=== PATIENT | female | born 1950 ===

== ENCOUNTER 2021-07-18 07:51 | Emergency (ER) | payer OTHER ==
[~2021-07-18] VITALS: Ht 157.5 cm; Wt 88.9 kg
[~2021-07-18 07:51] MED LIST: CLOTRIMAZOLE VG; NEURONTIN800 MG; TAMS0.4C PO; TRAMADOL HCL50 MG PO; [UNRECOGNIZED DRUG - OTHER]
[2021-07-18] MEDS ORDERED: NAPR500T14 PO (08:05)
[2021-07-18] MEDS ORDERED: FELODIPINE ER5 MG PO (08:05)
[2021-07-18] MEDS ORDERED: SYNTHROID50 MCG PO (08:05)
[2021-07-18] MEDS ORDERED: NORFLEX100MG PO (12:47)
== END 2021-07-18 13:06 | disposition home or self-care (01) ==
LOC: ER 07:51
DX: R10.11 Right upper quadrant pain (principal)

== ENCOUNTER 2021-08-01 07:37 | Outpatient (CLI) | payer OTHER ==
[~2021-08-01 07:37] MED LIST changes: +FELODIPINE ER5 MG PO; +NAPR500T14 PO; +NORFLEX100MG PO; +SYNTHROID50 MCG PO
== END 2021-08-01 07:42 | disposition home or self-care (01) ==
LOC: TOM 07:37
PROVIDERS: ATTEND Internal Medicine Gastroenterology
DX: N20.0 Calculus of kidney (principal); R10.84 Generalized abdominal pain